=== PATIENT | female | born 1990 | race Caucasian/White ===

== ENCOUNTER 2017-02-20 18:18 | Emergency (ER) | payer OTHER ==
[~2017-02-20] VITALS: Ht 165.1 cm; Wt 110.2 kg
[2017-02-20 19:15] VITALS: BP 108/72
--- NOTE | 2017-02-20 22:55 | NUR ---
TO ER BED 3
--- NOTE | 2017-02-20 23:05 | NUR ---
26 Y/O HERE C/O ABNORMAL VAGINAL BLEEDING X DECEMBER 2016. PER PT SHE WAS GIVEN CONTROL TO STOP BLEEDING BY OBGYN BUT BLEEDING HAS CHANGE AT ALL. C/O FEELING DIZZINESS AND HEADACHES. ER MD MADE AWARE.
[2017-02-21 00:18] VITALS: BP 116/79
--- NOTE | 2017-02-21 00:18 | NUR ---
Patient discharged BY ER MD with v/s stable. Written and verbal after care instructions given and explained TO PT BY DR CRUZ. Patient alert, oriented and verbalized understanding of instructions. Ambulatory with steady gait. All questions addressed prior to discharge. ID band removed. Patient advised to follow up with PMD OR RETURN TO ER IF CONDITION GETS WORSE. Rx of PROVERA given. Patient educated on indication of medication including possible reaction and side effects. Opportunity to ask questions provided and answered.
== END 2017-02-21 00:18 | disposition home or self-care (01) ==
LOC: MED 18:18
DX: N93.8 Other specified abnormal uterine and vaginal bleeding (principal)